=== PATIENT | male | born 1995 | race Two or more races ===

== ENCOUNTER 2017-09-04 01:57 | Emergency (ER) | payer MEDICAID ==
[~2017-09-04] VITALS: Ht 162.6 cm; Wt 65.8 kg
[2017-09-04] MEDS ORDERED: RISPERDOL (02:17)
[2017-09-04] MEDS ORDERED: risperiDONE 1 MG TABLET PO SCH (02:30)
--- NOTE | 2017-09-04 02:52 | NUR ---
Patient given written and verbal discharge instructions. Patient verbalizes understanding of instructions. Patient is ambulatory with steady gait. Refuses offer of [facility] placement. Patient given list of available shelters in surrounding area.
[2017-09-04] MEDS ORDERED: risperiDONE 2 MG TABLET ONE (02:59)
[2017-09-04] MEDS ORDERED: risperiDONE 1 MG TABLET ONE (03:00)
== END 2017-09-04 02:55 | disposition home or self-care (01) ==
LOC: ER 02:03
DX: F41.9 Anxiety disorder, unspecified (principal); F20.9 Schizophrenia, unspecified
CPT/HCPCS: A4663

== ENCOUNTER 2023-05-05 05:55 | Emergency (ER) | payer MEDICAID ==
[~2023-05-05 05:55] MED LIST: RISPERDOL
--- NOTE | 2023-05-05 05:59 | NUR ---
Patient was called to be triaged but was not present in the waiting room or outside of ER.
--- NOTE | 2023-05-05 06:20 | NUR ---
Patient was called to be triaged but was not present in the waiting room or outside of ER.
--- NOTE | 2023-05-05 06:25 | NUR ---
Patient was called to be triaged but was not present in the waiting room or outside of ER. PATIENT WAS NOT TRIAGED OR SEEN BY [facility].
== END 2023-05-05 06:26 | disposition left against medical advice (07) ==
LOC: ER 06:01
DX: Z53.21 Procedure and treatment not carried out due to patient leaving prior to being seen by health care provider (principal)